=== PATIENT | male | born 1955 | race Caucasian/White ===

== ENCOUNTER → 2017-04-10 | Outpatient (CLI) | payer OTHER ==
[~2017-04-10] MED LIST: CARDURA4 MG PO; CLARITIN 10MG T10 MG PO; FLOMAX 0.4MG C0.4 MG PO; FLONASE 50 MCG16 GM; HYDROCHLOROTH12.5 M1 PO; KETOCONAZOLE2% TP; LIPITOR20 MG PO; NORVASC PO
[2017-04-10 13:38] LABS: LYMPH # 1.6 K/mm3 (0.7-4.5); LYMPH % 31.2 % (10-50)
[2017-04-10 13:46] LABS: HEMOGLOBIN 14.8 g/dL (14.1-18.0)
[2017-04-10 14:37] LABS: BUN 21 mg/dL (7-18)
[2017-04-10 14:43] LABS: GFR (ESTIMATED) 51 ML/MIN (>60)
[2017-04-11 04:40] LABS: Thyroid Peroxidase (TPO) Ab 9 IU/mL (0-34)
[2017-04-11 14:40] LABS: Thyroglobulin Antibody <1.0 IU/mL (0.0-0.9)
[2017-04-12 14:40] LABS: Calcitonin 2.3 pg/mL (0.0-8.4)
== END ==
LOC: CARL-LAB 09:41
PROVIDERS: Otolaryngology; Physician Assistant
DX: E01.0 Iodine-deficiency related diffuse (endemic) goiter (principal); I10 Essential (primary) hypertension; N18.9 Chronic kidney disease, unspecified